=== PATIENT | male | born 1975 | race Caucasian/White ===

== ENCOUNTER 2022-10-07 06:03 | Outpatient (REF) | payer MEDICARE, MEDICAID, SELFPAY | END 2022-10-07 06:04 | disposition home or self-care (01) | LOC: HO.HOSX 06:03 | PROVIDERS: Visit Provider Physician Assistant | DX: Z13.89 Encounter for screening for other disorder (principal) ==

== ENCOUNTER 2022-10-24 06:03 | Outpatient (REF) | payer MEDICARE, MEDICAID, SELFPAY ==
--- NOTE | ~2022-10-24 | XR_ITS ---
EXAMINATION: XR FOOT, RIGHT XR ANKLE, RIGHT CLINICAL INFORMATION: Displaced fracture right 5th metatarsal bone. COMPARISON: None available. TECHNIQUE: 3 views of the right foot and 3 views of the right ankle. FINDINGS: RIGHT FOOT: No fracture or dislocation. Degenerative changes of the talonavicular joint and talar osteophyte or beak. Degenerative changes at the posterior talar calcaneal joint. Calcaneal spurs. RIGHT ANKLE: No acute fracture or dislocation. Evidence of old trauma to the inferior medial and lateral malleoli. Severe arthritis at the tibiotalar joint. The ankle mortise appears unstable with slight tilt of the dome of the talus. Diffuse soft tissue swelling about the ankle and probable joint effusion. XR/XR ankle RT min 3V IMPRESSION: Right Foot: Degenerative changes of the hindfoot. Right Ankle: Probable old trauma to the inferior medial and lateral malleoli. Severe arthritis at the ankle joint and unstable ankle mortise with tilted dome of the talus. Diffuse soft tissue swelling and joint effusion.
--- NOTE | ~2022-10-24 | XR_ITS ---
EXAMINATION: XR FOOT, RIGHT XR ANKLE, RIGHT CLINICAL INFORMATION: Displaced fracture right 5th metatarsal bone. COMPARISON: None available. TECHNIQUE: 3 views of the right foot and 3 views of the right ankle. FINDINGS: RIGHT FOOT: No fracture or dislocation. Degenerative changes of the talonavicular joint and talar osteophyte or beak. Degenerative changes at the posterior talar calcaneal joint. Calcaneal spurs. RIGHT ANKLE: No acute fracture or dislocation. Evidence of old trauma to the inferior medial and lateral malleoli. Severe arthritis at the tibiotalar joint. The ankle mortise appears unstable with slight tilt of the dome of the talus. Diffuse soft tissue swelling about the ankle and probable joint effusion. XR/XR foot RT min 3V IMPRESSION: Right Foot: Degenerative changes of the hindfoot. Right Ankle: Probable old trauma to the inferior medial and lateral malleoli. Severe arthritis at the ankle joint and unstable ankle mortise with tilted dome of the talus. Diffuse soft tissue swelling and joint effusion.
== END 2022-10-24 06:04 | disposition home or self-care (01) ==
LOC: HO.HOSX 06:03
PROVIDERS: Visit Provider Physician Assistant
DX: S92.351A Displaced fracture of fifth metatarsal bone, right foot, initial encounter for closed fracture (principal); M19.071 Primary osteoarthritis, right ankle and foot
CPT/HCPCS: 73610; 73630; 99202

== ENCOUNTER 2022-11-01 09:56 | Outpatient (REF) | payer MEDICARE, MEDICAID, SELFPAY ==
[2022-11-01 10:59] LABS: Hematocrit 41.4 % (42.0-52.0); Hemoglobin 13.9 g/dl (14.0-18.0); Mean Corpuscular HGB Conc 33.6 g/dl (31.0-36.0); Mean Corpuscular Hemoglobin 27.9 pg (27.0-33.0); Mean Corpuscular Volume 83.1 fL (80.0-98.0); Mean Platelet Volume 10.2 fL (9.4-12.4); Platelet Count 197 X10*3/uL (160-400); Red Blood Count 4.98 X10*6/uL (4.60-5.80); Red Cell Distribution Width 12.7 % (11.0-16.0); White Blood Count 4.6 X10*3/uL (4.8-10.8)
[2022-11-01 11:17] LABS: Alanine Aminotransferase 33 U/L (0-40); Alkaline Phosphatase 91 U/L (39-117); Anion Gap 10 (12-20); Aspartate Amino Transferase 26 U/L (5-37); Bilirubin Total 0.5 mg/dL (0.0-1.0); Blood Urea Nitrogen 12 mg/dL (9-16); Calcium 8.8 mg/dL (8.4-10.2); Carbon Dioxide 27 mmol/L (22-29); Chloride 107 mmol/L (96-108); Cholesterol 162 mg/dL; Estimated Glomerular Filt Rate > 60; Glucose Fasting 114 mg/dL (60-99); HDL Cholesterol 43 mg/dL; LDL Cholesterol Calculated 100 mg/dl; Potassium 4.8 mmol/L (3.3-5.1); Sodium 139 mmol/L (135-145); Total Protein 6.5 g/dL (6.5-8.0); Triglycerides 97 mg/dL
[2022-11-01 11:35] LABS: TSH reflex Free T4 1.67 uIU/mL (0.32-4.0); Vitamin D 25-OH Total 15.1 ng/mL (>30)
== END 2022-11-01 09:57 | disposition home or self-care (01) ==
LOC: HO.10HDL 09:56
PROVIDERS: Visit Provider Nurse Practitioner Family
DX: Z00.00 Encounter for general adult medical examination without abnormal findings (principal); E55.9 Vitamin D deficiency, unspecified
CPT/HCPCS: 36415; 80053; 80061; 82306; 84443; 85027

== ENCOUNTER 2023-02-03 09:55 | Outpatient (REF) | payer MEDICARE, MEDICAID, SELFPAY ==
[2023-02-03 12:02] LABS: Vitamin D 25-OH Total 28.8 ng/mL (>30)
== END 2023-02-03 09:56 | disposition home or self-care (01) ==
LOC: HO.10HDL 09:55
PROVIDERS: Visit Provider Nurse Practitioner Family
DX: E55.9 Vitamin D deficiency, unspecified (principal)
CPT/HCPCS: 36415; 82306

== ENCOUNTER 2023-02-03 16:05 | Outpatient (AMB) | payer MEDICARE, MEDICAID, SELFPAY ==
[2023-02-03 16:17] VITALS: BP 122/78; PULSE 84; TEMP 37.1; O2SAT 97; BMI 39.9
--- NOTE | 2023-02-03 16:17 | MHC.PC.OV ---
Vital Signs 02/03/23 16:17 Height 5 ft 11 in Weight 286 lb BMI 39.9 BP 122/78 Blood Pressure Location Lt brachial Position Sitting Pulse 84 Pulse Source Pulse Oximeter Temp 98.8 F Temp Source Oral Pulse Oximetry (%) 97 Oxygen Delivery Method Room Air Oxygen Flow Rate 98.8 Intake Visit Reasons: f/u left hip surgery, right ankle pain Intake Note: Patient is here for follow up on left hip surgery. Patient is complaining of right ankle pain. Patient is also complaining of anxiety. Allergies No Known Allergies Allergy (Unverified 02/03/23 16:45) Medication List - Last Reconciled 02/03/23 by Jere Moser CNP cholecalciferol (vitamin D3) 1,250 mcg PO QWEEK 8 weeks fluoxetine 20 mg PO DAILY 90 days gabapentin 800 mg PO TID 30 days hydroxyzine HCl 50 mg PO QID PRN 30 days lisinopril 2.5 mg PO DAILY omeprazole 20 mg PO DAILY 30 days Tobacco use date assessed: 02/03/23 Dental Screening Dental Screen Date: 02/03/23 Did you have a dental visit in the last 12 months?: No Did you have a dental problem in the last 6 months where you did not have access to dental care?: No Was dental information given to patient?: No HPI HPI Comments History of Present Illness Details 47-year-old male presents for left hip surgery follow-up He notes he had total hip replace surgery at [facility] on 11/07/2022. He reports significant improvement and progressively improving. He reports continued pain to his right ankle. He symptoms have been ongoing for the past 2 years He was seen by [facility] Ortho on 10/24/2022, x-ray of right foot and ankle reveals severe OA, was referred to foot and ankle specialist He notes that the financial assistance specialist advised to allow his left hip to properly heal before possible fusion of the left ankle. He states he is getting fitted for an AFO ankle brace next week. He notes that icing and otc muscle rub provides significant relief. He reports anxiety and notes Fluoxetine and hydroxyzine provides improvement. He notes he only takes the the Hydroxyzine on and off. He requests a referral to a therapist. [facility] Surgical History (Updated 10/24/22 @ 13:34 by MEHRAN Bryant) History of back surgery History of right hip replacement Social History Housing: Apartment Patient Tobacco Use Status: Never used Tobacco e-Cigarette/Vaping Use: Former Use service: No Current occupational status: unemployed Cognitive needs: No Hearing needs: No Vision needs: No Questionnaire PHQ-9 Over the last 2 weeks, how often have you been bothered by any of the following problems? 1. Little interest or pleasure in doing things: nearly every day 2. Feeling down, depressed, or hopeless: several days 3. Trouble falling or staying asleep, or sleeping too much: more than half the days 4. Feeling tired or having little energy: nearly every day 5. Poor appetite or overeating: nearly every day 6. Feeling bad about yourself - or that you are a failure or have let yourself or your family down: nearly every day 7. Trouble concentrating on things, such as reading the newspaper or watching television: nearly every day 8. Moving or speaking so slowly that other people could have noticed. Or the opposite - being so fidgety or restless that you have been moving around a lot more than usual: nearly every day 9. Thoughts that you would be better off or of hurting yourself in some way: not at all Total score: 21 Depression Screening Interpretation: Positive Depression Screening Follow-up: Existing condition, In treatment and Community Mental Health Worker F/U Source: Developed by Drs. Jony Perez, Jone Montiel and colleagues, with an educational chloe from [employer]. Thrive Questionnaire Date Thrive assessed: 09/06/22 ASTER-7 AMB Questionnaire ASTER-7 Date ASTER - 7 assessed: 09/06/22 Feeling nervous, anxious, or on edge: 3 = Nearly every day Not being able to stop or control worryin = Nearly every day Worrying too much about different things: 3 = Nearly every day Trouble relaxin = Nearly every day Being so restless that it is hard to sit still: 3 = Nearly every day Becoming easily annoyed or irritable: 3 = Nearly every day Feeling afraid as if something awful might happen: 0 = Not at all Total ASTER-7 score (0-4 normal; 5-9 mild; 10-14 moderate; 15-21 severe): 18 Source: Developed by Uyen La James, Jone Uribe and colleagues, with an educational chloe from [employer]. Review of Systems Const Details: Const Denies chills, Denies fatigue, Denies fever(s), Denies headache(s) and Denies weakness ENT Denies dizziness and Denies headache(s) Card Denies chest pain, Denies lightheadedness, Denies dyspnea and Denies other (Palpitations) Resp Denies cough, Denies dyspnea, Denies wheezing and Denies other ( shortness of breath) GI Denies abdominal pain, Denies melena, Denies hematochezia, Denies change in bowel habits, Denies dyspepsia and Denies nausea Denies hematuria and Denies dysuria Musc Reports R ankle pain, Denies abnormal gait, Denies numbness and Denies tingling Skin/Breast Denies rash, Denies unusual bruising and Denies wounds Neuro Denies abnormal gait, Denies dizziness, Denies headache(s), Denies memory loss, Denies numbness, Denies Sensory deficit (Neuro), Denies tingling and Denies weakness Psych Reports anxiety and Denies depression Endo Denies fatigue Aller/Immun Denies wheezing Physical exam (Primary Care) Vital Signs: Last Vital Signs Temp 98.8 F 02/03/23 16:17 Pulse 84 02/03/23 16:17 BP 122/78 02/03/23 16:17 Pulse Ox 97 02/03/23 16:17 Oxygen Delivery Method Room Air 02/03/23 16:17 Oxygen Flow Rate 98.8 02/03/23 16:17 BMI result Body Mass Index 39.9 Tobacco/Smoking Status: Tobacco use Status Tobacco use date assessed 02/03/23 02/03/23 16:33 Patient Tobacco Use Status Never used Tobacco 02/03/23 16:33 e-Cigarette/Vaping Use Former Use 02/03/23 16:33 Depression Screening Interpretation: Positive Depression Screening Follow-up: Existing condition, In treatment and Community Mental Health Worker F/U Thrive Assessment: Date of Thrive Assessment Date Thrive assessed 09/06/22 02/03/23 16:33 Const Other: General: no acute distress and well developed Nutritional Appearance: well nourished Orientation/consciousness: patient oriented x3 HENMT Head: Yes normocephalic and Yes atraumatic Eyes General: appearance normal, both eyes and all related structures Pupils: Equal, round and reactive pupils present EOM: EOMs intact bilaterally Resp Effort & Inspection: normal respiratory effort Auscultation: clear to auscultation bilaterally Cardio Rate: regular rate Rhythm: regular rhythm Heart sounds: S1 normal heart sound present, S2 normal heart sound present, no gallops, no murmurs and no rubs GI Palpation (GI): No Abdominal aortic bruit present, Soft to palpation, nontender, No hepatosplenomegaly present and No Rebound tenderness present Auscultation: normal bowel sounds General: Yes no CVA tenderness Back/Spine/Pelvis Back: no CVA tenderness Cervical Spine: cervical ROM normal and No Cervical spine tenderness Thoracic/Lumbar Spine: thoraco-lumbar ROM normal, No pain with thoraco-lumbar ROM, No thoracic spinal tenderness and No lumbar spinal tenderness Extrem General: Yes normal to inspection, No edema and No calf tenderness Skin General: warm and dry. Normal skin color. Normal skin turgor Lesions: no lesions Rashes: no rashes Trauma: no lacerations or abrasions Wounds: no wounds Nails: normal Neuro General: patient oriented x3, gait normal and no focal neuro deficit Cranial nerves: Yes Equal, round and reactive pupils present Cognition (Neuro): normal cognition Gait exam (Neuro): Normal gait present Sensory Exam: No Sensory deficit (Neuro) Psych Appearance: grossly normal Affect: normal affect Attitude: cooperative Thought process: Normal thought process present Assessment and Plan Assessment & Plan (1) Chronic pain of right ankle: Code(s): M25.571 - Pain in right ankle and joints of right foot; G89.29 - Other chronic pain Plan: He reports continued pain to his right ankle. He symptoms have been ongoing for the past 2 years He was seen by [facility] Ortho on 10/24/2022, x-ray of right foot and ankle reveals severe OA, was referred to foot and ankle specialist He notes that the financial assistance specialist advised to allow his left hip to properly heal before possible fusion of the left ankle. He states he is getting fitted for an AFO ankle brace next week. He notes that icing and otc muscle rub provides significant relief. Continue with current regimen Follow-up with orthopedics or hand/financial assistance specialist as planned Return with new or worsening symptom Verbalized understanding and agreed with treatment plan (2) Chronic left hip pain: Code(s): M25.552 - Pain in left hip; G89.29 - Other chronic pain Plan: He notes that he had total hip replace surgery at [facility] on 11/07/2022. He reports significant improvement and progressively improving. Continue follow-up with surgery as planned Follow-up with new or worsening symptoms Verbalized understanding and agreed with treatment plan. (3) Anxiety: Code(s): F41.9 - Anxiety disorder, unspecified Plan: PHQ-9 and ASTER-7 scores revealed severe depression and anxiety Continue to take fluoxetine and hydroxyzine as prescribed Referred to the community navigator for referral to a therapist Routine exercise encouraged Follow-up with new or worsening symptoms Verbalized understanding and agreed with treatment plan. (4) Depression: Code(s): F32.A - Depression, unspecified Plan: As above Orders: Referrals Nurse Navigator Referral F32.A - Depression, unspecified, F41.9 - Anxiety disorder, unspecified Coding Level of Care Code Est Pt Level 4 (89783) Diagnoses Chronic pain of right ankle M25.571; G89.29 Chronic left hip pain M25.552; G89.29 Anxiety F41.9 Depression F32.A Time Spent (min) 35
== END 2023-02-03 17:09 | disposition home or self-care (01) ==
PROVIDERS: PCP Nurse Practitioner Family; Visit Provider Nurse Practitioner Family
DX: M25.571 Pain in right ankle and joints of right foot (principal); G89.29 Other chronic pain; M25.552 Pain in left hip; F41.9 Anxiety disorder, unspecified; F32.A Depression, unspecified
CPT/HCPCS: 99214

== ENCOUNTER 2023-03-17 10:45 | Outpatient (REF) | payer MEDICARE, MEDICAID, SELFPAY ==
[2023-03-17 15:44] LABS: Glucose Fasting 108 mg/dL (60-99)
== END 2023-03-17 10:46 | disposition home or self-care (01) ==
LOC: HO.10HDL 10:45
PROVIDERS: Visit Provider Nurse Practitioner Family
DX: R73.01 Impaired fasting glucose (principal); E55.9 Vitamin D deficiency, unspecified
CPT/HCPCS: 36415; 82306; 82947

== ENCOUNTER 2023-03-21 13:26 | Outpatient (AMB) | payer MEDICARE, MEDICAID, SELFPAY ==
--- NOTE | 2023-03-21 13:30 | MHC.PC.OV ---
Vital Signs 03/21/23 13:31 Height 5 ft 11 in Weight 288 lb 6 oz BMI 40.2 BP 138/76 Blood Pressure Location Rt brachial Position Sitting Respiration 12 Pulse 95 Pulse Source Pulse Oximeter Temp 98 F Temp Source Temporal Artery Scan Pulse Oximetry (%) 99 Oxygen Delivery Method Room Air Intake Visit Reasons: 1 mos anxiety, depression Intake Note: Patient states he needs a refill on his gabapentin. Patient would also like to know if he is suppose to keep taking Vitamin D3. Patient would like a referral to eye doctor to get vision checked. Pattern Drafter Required: No Accompanied by: Self / Same As Patient Allergies Seasonal Allergies Allergy (Intermediate, Verified 03/21/23 13:59) Itchy Eyes raw apples Allergy (Intermediate, Uncoded 03/21/23 13:59) Itchy throat Medication List - Last Reviewed 03/21/23 by Ryann Tran MA acetaminophen (Tylenol Extra Strength) 1,000 mg PO TID cholecalciferol (vitamin D3) 25 mcg PO DAILY 90 days fluoxetine 20 mg PO DAILY 90 days gabapentin 800 mg PO TID 30 days hydroxyzine HCl 50 mg PO QID PRN 30 days ibuprofen 800 mg PO TID lisinopril 2.5 mg PO DAILY 30 days omeprazole 20 mg PO DAILY 30 days upadacitinib ER (Rinvoq) 15 mg PO DAILY Tobacco use date assessed: 02/03/23 Dental Screening Dental Screen Date: 03/21/23 Did you have a dental visit in the last 12 months?: No Did you have a dental problem in the last 6 months where you did not have access to dental care?: No Was dental information given to patient?: Yes HPI HPI Comments History of Present Illness Details 47-year-old male presents for anxiety and depression follow-up. He is on fluoxetine and hydroxyzine which he notes he has been taking as prescribed. He reports controlled and improved anxiety and depression symptoms. He notes he has not been contacted by behavioral therapy. He reports continued persistent right ankle pain. He is on prescribed Tylenol and Ibuprofen. He is followed by Dr. Vlad Krishnamurthy, orthopedic surgeon. He note he has not been taking Vitamin D3 since prescribed. He requests a referral to Ophthalmology for an eye exam. He denies acute eye symptoms. [facility] Medical History No pertinent past medical history Surgical History History of back surgery History of right hip replacement Family History Other Mental health disorder Substance abuse Social History Housing: Apartment Tobacco use type: Smokeless Tobacco e-Cigarette/Vaping Use: Former Use service: No Current occupational status: unemployed Cognitive needs: No Hearing needs: No Vision needs: Yes Questionnaire PHQ-9 Over the last 2 weeks, how often have you been bothered by any of the following problems? 1. Little interest or pleasure in doing things: more than half the days 2. Feeling down, depressed, or hopeless: more than half the days 3. Trouble falling or staying asleep, or sleeping too much: several days 4. Feeling tired or having little energy: more than half the days 5. Poor appetite or overeating: nearly every day 6. Feeling bad about yourself - or that you are a failure or have let yourself or your family down: more than half the days 7. Trouble concentrating on things, such as reading the newspaper or watching television: nearly every day 8. Moving or speaking so slowly that other people could have noticed. Or the opposite - being so fidgety or restless that you have been moving around a lot more than usual: nearly every day 9. Thoughts that you would be better off or of hurting yourself in some way: not at all Total score: 18 Depression Screening Interpretation: Positive Depression Screening Follow-up: Existing condition and In treatment Source: Developed by Drs. Jony Perez, Uyen Ramirez, Jone Uribe and colleagues, with an educational chloe from [employer]. Thrive Questionnaire Date Thrive assessed: 09/06/22 ASTER-7 AMB Questionnaire ASTER-7 Date ASTER - 7 assessed: 03/21/23 Feeling nervous, anxious, or on edge: 2 = More than half the days Not being able to stop or control worryin = More than half the days Worrying too much about different things: 2 = More than half the days Trouble relaxin = More than half the days Being so restless that it is hard to sit still: 2 = More than half the days Becoming easily annoyed or irritable: 1 = Several days Feeling afraid as if something awful might happen: 3 = Nearly every day Total ASTER-7 score (0-4 normal; 5-9 mild; 10-14 moderate; 15-21 severe): 14 Source: Developed by Drs. Jony Perez, Uyen Ramirez, Jone Uribe and colleagues, with an educational chloe from [employer]. Review of Systems Const Details: Const Denies chills, Denies fatigue, Denies fever(s), Denies headache(s) and Denies weakness ENT Denies dizziness and Denies headache(s) Card Denies chest pain, Denies lightheadedness, Denies dyspnea and Denies other (Palpitations) Resp Denies cough, Denies dyspnea, Denies wheezing and Denies other ( shortness of breath) GI Denies abdominal pain, Denies melena, Denies hematochezia, Denies change in bowel habits, Denies dyspepsia and Denies nausea Denies hematuria and Denies dysuria Musc Reports as per HPI Skin/Breast Denies rash, Denies unusual bruising and Denies wounds Neuro Denies abnormal gait, Denies dizziness, Denies headache(s), Denies memory loss, Denies numbness, Denies Sensory deficit (Neuro), Denies tingling and Denies weakness Psych Reports anxiety, Reports depression, Denies memory loss Endo Denies cold intolerance, Denies fatigue, Denies heat intolerance, Denies polydipsia and Denies polyuria Aller/Immun Denies wheezing Physical exam (Primary Care) Vital Signs: Last Vital Signs Temp 98 F 03/21/23 13:31 Pulse 95 03/21/23 13:31 Resp 12 03/21/23 13:31 BP 138/76 03/21/23 13:31 Pulse Ox 99 03/21/23 13:31 Oxygen Delivery Method Room Air 03/21/23 13:31 BMI result Body Mass Index 40.2 Tobacco/Smoking Status: Tobacco use Status Tobacco use date assessed 02/03/23 03/21/23 13:31 Patient Tobacco Use Status 03/21/23 13:50 Tobacco use type Smokeless Tobacco 03/21/23 13:50 e-Cigarette/Vaping Use Former Use 03/21/23 13:31 PHQ-9: PHQ-9 Score PHQ-9: Total score 18 03/21/23 14:15 Depression Screening Interpretation: Positive Depression Screening Follow-up: Existing condition and In treatment Thrive Assessment: Date of Thrive Assessment Date Thrive assessed 09/06/22 03/21/23 13:31 Const Other: General: no acute distress and well developed Nutritional Appearance: well nourished Orientation/consciousness: patient oriented x3 HENMT Head: Yes normocephalic and Yes atraumatic Eyes General: appearance normal, both eyes and all related structures Pupils: Equal, round and reactive pupils present EOM: EOMs intact bilaterally Resp Effort & Inspection: normal respiratory effort Auscultation: clear to auscultation bilaterally Cardio Rate: regular rate Rhythm: regular rhythm Heart sounds: S1 normal heart sound present, S2 normal heart sound present, no gallops, no murmurs and no rubs GI Palpation (GI): No Abdominal aortic bruit present, Soft to palpation, nontender, No hepatosplenomegaly present and No Rebound tenderness present Auscultation: normal bowel sounds General: Yes no CVA tenderness Back/Spine/Pelvis Back: no CVA tenderness Cervical Spine: cervical ROM normal and No Cervical spine tenderness Thoracic/Lumbar Spine: thoraco-lumbar ROM normal, No pain with thoraco-lumbar ROM, No thoracic spinal tenderness and No lumbar spinal tenderness Extrem General: Yes normal to inspection, No edema and No calf tenderness Skin General: warm and dry. Normal skin color. Normal skin turgor Lesions: no lesions Rashes: no rashes Trauma: no lacerations or abrasions Wounds: no wounds Nails: normal Neuro General: patient oriented x3, gait normal and no focal neuro deficit Cranial nerves: Yes Equal, round and reactive pupils present Cognition (Neuro): normal cognition Gait exam (Neuro): Normal gait present Sensory Exam: No Sensory deficit (Neuro) Psych Appearance: grossly normal Affect: normal affect Attitude: cooperative Thought process: Normal thought process present Results AMB Hemoglobin A1c AMB Hemoglobin A1c 5.9 % Last Edit by Ryann Tran MA on 03/21/23 16:13 Assessment and Plan Assessment & Plan (1) Anxiety: Code(s): F41.9 - Anxiety disorder, unspecified Plan: PHQ-9 and ASTER-7 scores revealed moderately severe depression and moderate anxiety respectively Fluoxetine and hydroxyzine as prescribed Routine exercise encouraged He met with the community navigator who will try to facilitate connecting him to a therapist Follow-up in 1 month or return sooner with worsening or new symptoms Verbalized understanding and agreed with treatment plan. (2) Depression: Code(s): F32.A - Depression, unspecified Plan: As above (3) Hypertension: Code(s): I10 - Essential (primary) hypertension Plan: Blood pressure is 138/76, within goal of less than 140/90 Lisinopril as prescribed Low-sodium diet encouraged Follow-up in 1 month for complete physical exam Verbalized understanding and agreed with treatment plan. (4) Chronic pain of right ankle: Code(s): M25.571 - Pain in right ankle and joints of right foot; G89.29 - Other chronic pain Plan: He reports continued persistent right ankle pain. He is on prescribed Tylenol and Ibuprofen. He is followed by Dr. Vlad Krishnamurthy, orthopedic surgeon. No edema, erythema, or overt injury or trauma Tylenol, ibuprofen, and gabapentin as prescribed Warm/cold compresses encouraged Follow-up with Orthopedic surgery as planned Return with new or worsening symptoms Verbalized understanding and agreed with treatment plan. (5) Vitamin D deficiency: Code(s): E55.9 - Vitamin D deficiency, unspecified Plan: He note he has not been taking Vitamin D3 since prescribed Recent vitamin-D level is low, 22 Encouraged to start taking vitamin D3 as prescribed Verbalized understanding and agreed with treatment plan. (6) Pre-diabetes: Code(s): R73.03 - Prediabetes Plan: Recent lab results reviewed with the patient. Recent fasting glucose is elevated and has been elevated in past. A1c today is 5.9% Healthy diet and routine exercise encouraged Will continue to monitor Verbalized understanding and agreed with treatment plan. (7) Routine eye exam: Code(s): Z01.00 - Encounter for examination of eyes and vision without abnormal findings Plan: He requests a referral to Ophthalmology for an eye exam. He denies acute eye symptoms. Referred to Ophthalmology Orders: Orders AMB Hemoglobin A1c Today Z13.9 - Encounter for screening, unspecified Referrals Ophthalmology Referral Z01.00 - Encounter for examination of eyes and vision without abnormal findings Medications: Refilled gabapentin 800 mg PO TID 30 days 90 tabs 0RF Coding Level of Care Code Est Pt Level 4 (53429) Diagnoses Anxiety F41.9 Depression F32.A Hypertension I10 Chronic pain of right ankle M25.571; G89.29 Vitamin D deficiency E55.9 Pre-diabetes R73.03 Routine eye exam Z01.00
[2023-03-21 13:31] VITALS: BP 138/76; PULSE 95; RESP 12; TEMP 36.6; O2SAT 99; BMI 40.2
== END 2023-03-21 14:55 | disposition home or self-care (01) ==
PROVIDERS: PCP Nurse Practitioner Family; Visit Provider Nurse Practitioner Family
DX: I10 Essential (primary) hypertension (principal); E55.9 Vitamin D deficiency, unspecified; F41.9 Anxiety disorder, unspecified; R73.03 Prediabetes; F32.A Depression, unspecified; M25.571 Pain in right ankle and joints of right foot; G89.29 Other chronic pain; Z01.00 Encounter for examination of eyes and vision without abnormal findings
CPT/HCPCS: 83036; 99214

== ENCOUNTER 2023-04-21 12:57 | Outpatient (AMB) | payer MEDICARE, MEDICAID, SELFPAY ==
--- NOTE | 2023-04-21 13:06 | MHC.PC.OV ---
Vital Signs 04/21/23 13:15 Height 5 ft 11 in Weight 294 lb 2 oz BMI 41.0 BP 136/84 Blood Pressure Location Rt brachial Position Sitting Respiration 14 Pulse 107 H Pulse Source Pulse Oximeter Temp 98.9 F Temp Source Oral Pulse Oximetry (%) 97 Oxygen Delivery Method Room Air Intake Visit Reasons: Extended exam Intake Note: Patient reports he is here to follow up with his health. Patient reports he needs refills on all of his medications. 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 Accompanied by: Self / Same As Patient Allergies Seasonal Allergies Allergy (Intermediate, Verified 04/21/23 13:41) Itchy Eyes raw apples Allergy (Intermediate, Uncoded 04/21/23 13:41) Itchy throat Medication List - Last Reconciled 04/21/23 by Jere Moser CNP acetaminophen (Tylenol Extra Strength) 1,000 mg PO TID cholecalciferol (vitamin D3) 25 mcg PO DAILY 90 days fluoxetine 20 mg PO DAILY 90 days gabapentin 800 mg PO TID 30 days hydroxyzine HCl 50 mg PO QID PRN 30 days ibuprofen 800 mg PO TID lisinopril 5 mg PO DAILY 30 days omeprazole 20 mg PO DAILY 30 days upadacitinib ER (Rinvoq) 15 mg PO DAILY Tobacco use date assessed: 02/03/23 HPI HPI Comments History of Present Illness Details 47-year-old male presents for a complete physical exam. He has past medical history significant for hypertension, anxiety, depression, vitamin-D deficiency, and osteoarthritis of the right ankle and foot. He admits to taking his medications as prescribed. He is followed by a job service specialist and arthritis specialist. He states his job service specialist prescribed a right ankle brace which has been providing significant pain relief. He is also on Rinvoq which he notes was prescribed by his arthritis specialist. He denies acute symptoms at this time. [facility] Medical History No pertinent past medical history Surgical History History of back surgery History of right hip replacement Family History Other Mental health disorder Substance abuse Social History Housing: Apartment Tobacco use type: Smokeless Tobacco e-Cigarette/Vaping Use: Former Use service: No Current occupational status: unemployed Cognitive needs: No Hearing needs: No Vision needs: Yes Questionnaire Thrive Questionnaire Date Thrive assessed: 09/06/22 ASTER-7 AMB Questionnaire ASTER-7 Date ASTER - 7 assessed: 03/21/23 Source: Developed by Drs. Jony Perez, Uyen Ramirez, Jone Uribe and colleagues, with an educational chloe from [employer]. Review of Systems Const Details: Denies chills, Denies fatigue, Denies fever(s), Denies headache(s) and Denies weakness HEENT Denies change in vision, Denies dizziness, Denies headache(s), Denies hearing loss, Denies nasal congestion, Denies sinus pain, Denies sinus pressure and Denies sore throat Card Denies chest pain, Denies lightheadedness, Denies dyspnea and Denies other (palpitations) Resp Denies cough, Denies dyspnea and Denies wheezing GI Denies abdominal pain, Denies melena, Denies hematochezia, Denies change in bowel habits, Denies dyspepsia and Denies nausea Denies hematuria and Denies dysuria Musc Denies abnormal gait, Denies myalgias, Denies arthralgias, Denies numbness and Denies tingling Skin/Breast Denies rash, Denies unusual bruising and Denies wounds Neuro Denies abnormal gait, Denies dizziness, Denies headache(s), Denies memory loss, Denies numbness, Denies Sensory deficit (Neuro), Denies tingling and Denies weakness Psych Denies anxiety, Denies depression and Denies memory loss Endo Denies cold intolerance, Denies fatigue, Denies heat intolerance, Denies polydipsia and Denies polyuria Dave/Lymph Denies easy bleeding and Denies easy bruising Aller/Immun Denies wheezing Physical exam (Primary Care) Vital Signs: Last Vital Signs Temp 98.9 F 04/21/23 13:15 Pulse 107 H 04/21/23 13:15 Resp 14 04/21/23 13:15 BP 136/84 04/21/23 13:15 Pulse Ox 97 04/21/23 13:15 Oxygen Delivery Method Room Air 04/21/23 13:15 BMI result Body Mass Index 41.0 Tobacco/Smoking Status: Tobacco use Status Tobacco use date assessed 02/03/23 04/21/23 13:08 Tobacco use type Smokeless Tobacco 04/21/23 13:08 e-Cigarette/Vaping Use Former Use 04/21/23 13:08 Thrive Assessment: Date of Thrive Assessment Date Thrive assessed 09/06/22 04/21/23 13:08 Const Other: General: no acute distress, well developed, alert and awake Nutritional Appearance: well nourished Orientation/consciousness: patient oriented x3 HENMT Head: Yes normocephalic and Yes atraumatic Ears: hearing grossly normal bilaterally and TM's normal bilaterally General nose exam: Normal external nose present and Normal nares present Mouth: Normal oral and palatal mucosa present and moist mucous membranes Teeth and gingiva: dentition normal Throat: Yes oropharynx normal Eyes Pupils: Equal, round and reactive pupils present and Pupil accommodation reflex normal EOM: EOMs intact bilaterally Neck Neck: Yes normal visual inspection, Yes no lymphadenopathy and Yes trachea midline Thyroid: Thyroid normal Carotids: no bruits Lymphatic: no lymphadenopathy noted Chest Chest palpation & inspection: normal inspection of the chest Resp Effort & Inspection: normal respiratory effort Auscultation: clear to auscultation bilaterally Cardio Rate: regular rate Rhythm: regular rhythm Heart sounds: S1 normal heart sound present, S2 normal heart sound present, no gallops, no murmurs and no rubs Bruits: no abdominal aortic bruits and no carotid bruits GI Palpation (GI): No Abdominal aortic bruit present, Soft to palpation, nontender, No hepatosplenomegaly present and No Rebound tenderness present Auscultation: normal bowel sounds General: Yes no CVA tenderness Back/Spine/Pelvis Back: no CVA tenderness Cervical Spine: cervical ROM normal and No Cervical spine tenderness Thoracic/Lumbar Spine: thoraco-lumbar ROM normal, No pain with thoraco-lumbar ROM, No thoracic spinal tenderness and No lumbar spinal tenderness Skin General: warm and dry. Normal skin color. Normal skin turgor Lesions: no lesions Rashes: no rashes Trauma: no lacerations or abrasions Wounds: no wounds Nails: normal Neuro General: patient oriented x3, gait normal and CN's II-XI intact bilaterally Cranial nerves: Yes Equal, round and reactive pupils present Cognition (Neuro): normal cognition Gait exam (Neuro): Normal gait present Motor exam (neuro): 5/5 motor strength present throughout Sensory Exam: No Sensory deficit (Neuro) Deep tendon reflexes (DTR's): Right patellar reflex intensity grade: 2+ and Left patellar reflex intensity grade: 2+ Extrem General: Yes normal to inspection, No edema and No calf tenderness Psych Appearance: grossly normal Affect: normal affect Attitude: cooperative Thought process: Normal thought process present Assessment and Plan Assessment & Plan (1) Normal physical examination, routine: Code(s): Z00.00 - Encounter for general adult medical examination without abnormal findings Plan: No significant physical restrictions or limitations noted Advised continue with current arthritis treatment plan and to follow-up with foot and orthopedic specialists I spoke with the community navigator wound for November that [facility] has made several attempts to contact the patient but failed. A new referral has been placed to a different behavioral therapist. The community navigator will inform the patient above the new referral Advised to take fluoxetine and hydroxyzine as prescribed and to follow-up in 2 months or return sooner with worsening or new symptoms Verbalized understanding and agreed with the treatment plan. (2) Hypertension: Code(s): I10 - Essential (primary) hypertension Plan: Blood pressure is 136/84, above goal of less than 140/90 His blood pressure has been close to 140 on multiple occasions Will increase lisinopril to 5 mg daily. Take as prescribed Low-sodium diet encouraged Follow up in 2 months or return sooner with symptoms or concerns Verbalized understanding and agreed with treatment plan Medications: New lisinopril 5 mg PO DAILY 30 days 30 tabs 3RF Discontinued lisinopril Discontinued Reason: Doctor's Order 2.5 mg PO DAILY 30 days 30 tabs 3RF Coding Level of Care Code Est Pt Prev Care 40-64y(23168) Diagnoses Normal physical examination, routine Z00.00 Hypertension I10
[2023-04-21 13:15] VITALS: BP 136/84; PULSE 107; RESP 14; TEMP 37.2; O2SAT 97; BMI 41.0
== END 2023-04-21 13:40 | disposition home or self-care (01) ==
PROVIDERS: PCP Nurse Practitioner Family; Visit Provider Nurse Practitioner Family
DX: Z00.00 Encounter for general adult medical examination without abnormal findings (principal); I10 Essential (primary) hypertension
CPT/HCPCS: 99396

== ENCOUNTER 2023-06-23 13:11 | Outpatient (AMB) | payer OTHER, MEDICAID, SELFPAY ==
[2023-06-23 13:13] VITALS: BP 138/76; PULSE 89; RESP 13; TEMP 36.5; O2SAT 99; BMI 41.8
--- NOTE | 2023-06-23 13:13 | A.OFFPC_ITS ---
Vital Signs 06/23/23 13:13 06/23/23 13:55 Height 5 ft 11 in Weight 300 lb BMI 41.8 BP 138/76 110/86 Blood Pressure Location Lt brachial Rt brachial Position Sitting Sitting Respiration 13 Pulse 89 Pulse Source Pulse Oximeter Temp 97.7 F Temp Source Temporal Artery Scan Pulse Oximetry (%) 99 Oxygen Delivery Method Room Air Intake Visit Reasons: f/u anxiety, depression, HTN Intake Note: Patient states he had blood work done at [facility]. Patient needs refill on Hyd roxyzine, fluoxetine, and omeprazole. 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 Accompanied by: Self / Same As Patient Allergies Seasonal Allergies Allergy (Intermediate, Verified 06/23/23 13:45) Itchy Eyes raw apples Allergy (Intermediate, Uncoded 06/23/23 13:45) Itchy throat Medication List - Last Reconciled 06/23/23 by eJre Moser CNP acetaminophen (Tylenol Extra Strength) 1,000 mg PO TID cholecalciferol (vitamin D3) 25 mcg PO DAILY 90 days fluoxetine 20 mg PO DAILY 90 days gabapentin 800 mg PO TID 30 days hydroxyzine HCl 50 mg PO QID PRN 30 days ibuprofen 800 mg PO TID lisinopril 5 mg PO DAILY 30 days omeprazole 20 mg PO DAILY 30 days upadacitinib ER (Rinvoq) 15 mg PO DAILY Tobacco use date assessed: 02/03/23 Dental Screening Dental Screen Date: 06/23/23 Did you have a dental visit in the last 12 months?: No Did you have a dental problem in the last 6 months where you did not have access to dental care?: No Was dental information given to patient?: Yes HPI HPI Comments History of Present Illness Details 47-year-old male presents for anxiety, d epression, and hypertension follow-up He admits to taking his medications as prescribed without adverse reactions He reports increased anxiety and depression symptoms. He admits to getting adequate sleeps but finds it difficult to fall asleep He states that he established with [facility] earlier this week and will be doing weekly telemedicine therapy Patient states he had blood work done at [facility]. Patient needs refill on Hydroxyzine, fluoxetine, and omeprazole. [facility], [facility] Medical History No pertinent past medical history Surgical History History of back surgery History of right hip replacement Family History Other Mental health disorder Substance abuse Social History Housing: Apartment Tobacco use type: Smokeless Tobacco e-Cigarette/Vaping Use: Former Use service: No Current occupational status: unemployed Cognitive needs: No Hearing needs: No Vision needs: No Questionnaire PHQ-9 Over the last 2 weeks, how often have you been bothered by any of the following problems? 1. Little interest or pleasure in doing things: nearly every day 2. Feeling down, depressed, or hopeless: more than half the days 3. Trouble falling or staying asleep, or sleeping too much: more than half the days 4. Feeling tired or having little energy: nearly every day 5. Poor appetite or overeating: nearly every day 6. Feeling bad about yourself - or that you are a failure or have let yourself or your family down: nearly every day 7. Trouble concentrating on things, such as reading the newspaper or watching television: nearly every day 8. Moving or speaking so slowly that other people could have noticed. Or the opposite - being so fidgety or restless that you have been moving around a lot more than usual: nearly every day 9. Thoughts that you would be better off or of hurting yourself in some way: not at all Total score: 22 Depression Screening Interpretation: Positive Depression Screening Follow-up: Existing condition and In treatment Depression Screening Done: Yes 70217 - PHQ-9 Billing: Yes Source: Developed by Drs. Jony Perez, Uyen Ramirez, Jone Uribe and colleagues, with an educational chloe from [employer]. Thrive Questionnaire Date Thrive assessed: 09/06/22 ASTER-7 AMB Questionnaire SATER-7 Date ASTER - 7 assessed: 06/23/23 Feeling nervous, anxious, or on edge: 3 = Nearly every day Not being able to stop or control worryin = Nearly every day Worrying too much about different things: 3 = Nearly every day Trouble relaxin = Nearly every day Being so restless that it is hard to sit still: 3 = Nearly every day Becoming easily annoyed or irritable: 2 = More than half the days Feeling afraid as if something awful might happen: 2 = More than half the days Total ASTER-7 score (0-4 normal; 5-9 mild; 10-14 moderate; 15-21 severe): 19 Source: Developed by Drs. Jony Perez, Uyen Ramirez, Jone Uribe and colleagues, with an educational chloe from [employer]. ASTER-7 Assessment Billing ASTER-7 Assessment Tool: ASTER-7 Assessment 04970 Review of Systems Const Details: Const Denies chills, Denies fatigue, Denies fever(s), Denies headache(s) and Denies weakness ENT Denies dizziness and Denies headache(s) Card Denies chest pain, Denies lightheadedness, Denies dyspnea and Denies other (Palpitations) Resp Denies cough, Denies dyspnea, Denies wheezing and Denies other ( shortness of breath) GI Denies abdominal pain, Denies melena, Denies hematochezia, Denies change in bowel habits, Denies dyspepsia and Denies nausea Denies hematuria and Denies dysuria Musc Denies abnormal gait, Denies myalgias, Denies arthralgias, Denies numbness and Denies tingling Skin/Breast Denies rash, Denies unusual bruising and Denies wounds Neuro Denies abnormal gait, Denies dizziness, Denies headache(s), Denies memory loss, Denies numbness, Denies Sensory deficit (Neuro), Denies tingling and Denies weakness Psych Reports anxiety, Reports depression, Denies memory loss Endo Denies cold intolerance, Denies fatigue, Denies heat intolerance, Denies polydipsia and Denies polyuria Aller/Immun Denies wheezing Physical exam (Primary Care) Vital Signs: Last Vital Signs Temp 97.7 F 06/23/23 13:13 Pulse 89 06/23/23 13:13 Resp 13 06/23/23 13:13 BP 138/76 06/23/23 13:13 Pulse Ox 99 06/23/23 13:13 Oxygen Delivery Method Room Air 06/23/23 13:13 BMI result Body Mass Index 41.8 Tobacco/Smoking Status: Tobacco use Status Tobacco use date assessed 02/03/23 06/23/23 13:29 Tobacco use type Smokeless Tobacco 06/23/23 13:29 e-Cigarette/Vaping Use Former Use 06/23/23 13:29 PHQ-9: PHQ-9 Score PHQ-9: Total score 22 06/23/23 13:29 Depression Screening Interpretation: Positive Depression Screening Follow-up: Existing condition and In treatment Thrive Assessment: Date of Thrive Assessment Date Thrive assessed 09/06/22 06/23/23 13:29 Const Other: General: no acute distress and well developed Nutritional Appearance: well nourished Orientation/consciousness: patient oriented x3 HENMT Head: Yes normocephalic and Yes atraumatic Eyes General: appearance normal, both eyes and all related structures Pupils: Equal, round and reactive pupils present EOM: EOMs intact bilaterally Resp Effort & Inspection: normal respiratory effort Auscultation: clear to auscultation bilaterally Cardio Rate: regular rate Rhythm: regular rhythm Heart sounds: S1 normal heart sound present, S2 normal heart sound present, no gallops, no murmurs and no rubs GI Palpation (GI): No Abdominal aortic bruit present, Soft to palpation, nontender, No hepatosplenomegaly present and No Rebound tenderness present Auscultation: normal bowel sounds General: Yes no CVA tenderness Back/Spine/Pelvis Back: no CVA tenderness Cervical Spine: cervical ROM normal and No Cervical spine tenderness Thoracic/Lumbar Spine: thoraco-lumbar ROM normal, No pain with thoraco-lumbar ROM, No thoracic spinal tenderness and No lumbar spinal tenderness Extrem General: Yes normal to inspection, No edema and No calf tenderness Skin General: warm and dry. Normal skin color. Normal skin turgor Neuro General: patient oriented x3, gait normal and no focal neuro deficit Cranial nerves: Yes Equal, round and reactive pupils present Cognition (Neuro): normal cognition Gait exam (Neuro): Normal gait present Sensory Exam: No Sensory deficit (Neuro) Psych Appearance: grossly normal Affect: normal affect Attitude: cooperative Thought process: Normal thought process present Assessment and Plan Assessment & Plan (1) Anxiety: Code(s): F41.9 - Anxiety disorder, unspecified Plan: PHQ-9 and ASTER-7 scores revealed severe depression and anxiety Reports increased anxiety and depression symptoms and difficulty falling asleep He started psychotherapy earlier this week Fluoxetine increased to 30 mg daily. Take as prescribed Buspirone ordered. Take as prescribed Hydroxyzine discontinued Routine exercise encouraged Continue to follow up with therapist as planned Follow-up in 1 month or return sooner with worsening or new symptoms Verbalized understanding and agreed with treatment plan (2) Depression: Code(s): F32.A - Depression, unspecified Plan: As above (3) Hypertension: Code(s): I10 - Essential (primary) hypertension Plan: Resting blood pressure is 110/86, within goal of less than 140/90 Continue to take lisinopril as prescribed Low-sodium diet encouraged Follow-up in 1 month Verbalized understanding and agreed with treatment plan Medications: New fluoxetine Take with Fluoxetine 20mg to equal 30mg 10 mg PO DAILY 30 days 30 tabs 3RF buspirone 7.5 mg PO BID 30 days 60 tabs 3RF fluoxetine Take with Fluoxetine 20mg to equal 30mg 10 mg PO DAILY 90 days 90 tabs 2RF Changed From omeprazole 20 mg PO DAILY 30 days 30 caps 3RF To omeprazole 20 mg PO DAILY 90 days 90 caps 1RF Refilled fluoxetine 20 mg PO DAILY 90 days 90 caps 2RF Discontinued hydroxyzine HCl Discontinued Reason: Doctor's Order 50 mg PO QID 30 days PRN 120 tabs 3RF anxiety Coding Level of Care Code Est Pt Level 3 (33224) Diagnoses Anxiety F41.9 Depression F32.A Hypertension I10 Additional Codes ASTER-7 Assessment Billing - ASTER-7 Assessment Tool: ASTER-7 Assessment [id number] ([id number])
[2023-06-23 13:55] VITALS: BP 110/86
== END 2023-06-23 14:03 | disposition home or self-care (01) ==
PROVIDERS: PCP Nurse Practitioner Family; Visit Provider Nurse Practitioner Family
DX: F41.9 Anxiety disorder, unspecified (principal); F32.A Depression, unspecified; I10 Essential (primary) hypertension
CPT/HCPCS: 96127; 99213

== ENCOUNTER 2023-07-25 13:05 | Outpatient (AMB) | payer OTHER, MEDICAID, SELFPAY ==
[2023-07-25 13:13] VITALS: BP 144/80; PULSE 98; RESP 13; TEMP 36.5; O2SAT 97; BMI 42.7
--- NOTE | 2023-07-25 13:13 | MHC.PC.OV ---
Vital Signs 07/25/23 13:13 07/25/23 13:49 Height 5 ft 11 in Weight 306 lb 8 oz BMI 42.7 BP 144/80 H 126/80 Blood Pressure Location Rt brachial Rt brachial Position Sitting Sitting Respiration 13 Pulse 98 Pulse Source Pulse Oximeter Temp 97.7 F Temp Source Temporal Artery Scan Pulse Oximetry (%) 97 Oxygen Delivery Method Room Air Intake Visit Reasons: f/u anxiety, depression Intake Note: Patient would like to dicuss a possible hiatal hernia in abdomen if possible. Patient would like gabapentin refilled. Insurance Policy Issue Clerk Required: No Accompanied by: Self / Same As Patient Allergies Seasonal Allergies Allergy (Intermediate, Verified 07/25/23 13:31) Itchy Eyes raw apples Allergy (Intermediate, Uncoded 07/25/23 13:31) Itchy throat Medication List - Last Reconciled 07/25/23 by Jere Moser CNP acetaminophen (Tylenol Extra Strength) 1,000 mg PO TID buspirone 7.5 mg PO BID 30 days cholecalciferol (vitamin D3) 25 mcg PO DAILY 90 days fluoxetine 20 mg PO DAILY 90 days fluoxetine 10 mg PO DAILY 90 days gabapentin 800 mg PO TID 30 days ibuprofen 800 mg PO TID lisinopril 5 mg PO DAILY 30 days omeprazole 20 mg PO DAILY 90 days upadacitinib ER (Rinvoq) 15 mg PO DAILY Tobacco use date assessed: 07/25/23 Dental Screening Dental Screen Date: 07/25/23 Did you have a dental visit in the last 12 months?: No Did you have a dental problem in the last 6 months where you did not have access to dental care?: No Was dental information given to patient?: Patient has dentist HPI HPI Comments History of Present Illness Details 47-year-old male presents for anxiety and depression follow-up He admits to taking his medications as prescribed without adverse reactions. He reports increase anxiety and depression improvement since his fluoxetine was increased and Buspirone added to his treatment regimen He reports hernia to his right upper quadrant. He notes that the hernia has been on and off for the past 2 years. He notes associated moderate discomfort to the mass [facility] Medical History No pertinent past medical history Surgical History History of back surgery History of right hip replacement Family History Other Mental health disorder Substance abuse Social History Housing: Apartment Tobacco use type: Smokeless Tobacco e-Cigarette/Vaping Use: Currently Using service: No Current occupational status: unemployed Cognitive needs: No Hearing needs: No Vision needs: No Questionnaire PHQ-9 Over the last 2 weeks, how often have you been bothered by any of the following problems? 1. Little interest or pleasure in doing things: nearly every day 2. Feeling down, depressed, or hopeless: several days 3. Trouble falling or staying asleep, or sleeping too much: nearly every day 4. Feeling tired or having little energy: nearly every day 5. Poor appetite or overeating: nearly every day 6. Feeling bad about yourself - or that you are a failure or have let yourself or your family down: several days 7. Trouble concentrating on things, such as reading the newspaper or watching television: nearly every day 8. Moving or speaking so slowly that other people could have noticed. Or the opposite - being so fidgety or restless that you have been moving around a lot more than usual: more than half the days 9. Thoughts that you would be better off or of hurting yourself in some way: not at all Total score: 19 Depression Screening Interpretation: Positive Depression Screening Done: Yes 60223 - PHQ-9 Billing: Yes Source: Developed by Drs. Jony Perez, Uyen Ramirez, Jone Uribe and colleagues, with an educational chloe from [employer]. Thrive Questionnaire Date Thrive assessed: 09/06/22 ASTER-7 AMB Questionnaire ASTER-7 Date ASTER - 7 assessed: 07/25/23 Feeling nervous, anxious, or on edge: 2 = More than half the days Not being able to stop or control worryin = More than half the days Worrying too much about different things: 2 = More than half the days Trouble relaxin = More than half the days Being so restless that it is hard to sit still: 2 = More than half the days Becoming easily annoyed or irritable: 1 = Several days Feeling afraid as if something awful might happen: 2 = More than half the days Total ASTER-7 score (0-4 normal; 5-9 mild; 10-14 moderate; 15-21 severe): 13 Source: Developed by Drs. Jony Perez, Uyen Ramirez, Jone Uribe and colleagues, with an educational chloe from [employer]. ASTER-7 Assessment Billing ASTER-7 Assessment Tool: ASTER-7 Assessment 25685 Review of Systems Const Details: Const Denies chills, Denies fatigue, Denies fever(s), Denies headache(s) and Denies weakness ENT Denies dizziness and Denies headache(s) Card Denies chest pain, Denies lightheadedness, Denies dyspnea and Denies other (Palpitations) Resp Denies cough, Denies dyspnea, Denies wheezing and Denies other ( shortness of breath) GI Reports right upper abdominal pain, Denies melena, Denies hematochezia, Denies change in bowel habits, Denies dyspepsia and Denies nausea Denies hematuria and Denies dysuria Musc Denies abnormal gait, Denies myalgias, Denies arthralgias, Denies numbness and Denies tingling Skin/Breast Denies rash, Denies unusual bruising and Denies wounds Neuro Denies abnormal gait, Denies dizziness, Denies headache(s), Denies memory loss, Denies numbness, Denies Sensory deficit (Neuro), Denies tingling and Denies weakness Psych Denies anxiety, Denies depression, Denies memory loss Endo Denies cold intolerance, Denies fatigue, Denies heat intolerance, Denies polydipsia and Denies polyuria Aller/Immun Denies wheezing Physical exam (Primary Care) Vital Signs: Last Vital Signs Temp 97.7 F 07/25/23 13:13 Pulse 98 07/25/23 13:13 Resp 13 07/25/23 13:13 BP 144/80 H 07/25/23 13:13 Pulse Ox 97 07/25/23 13:13 Oxygen Delivery Method Room Air 07/25/23 13:13 BMI result Body Mass Index 42.7 Tobacco/Smoking Status: Tobacco use Status Tobacco use date assessed 07/25/23 07/25/23 13:28 Tobacco use type Smokeless Tobacco 07/25/23 13:28 e-Cigarette/Vaping Use Currently Using 07/25/23 13:28 PHQ-9: PHQ-9 Score PHQ-9: Total score 19 07/25/23 13:28 Depression Screening Interpretation: Positive Thrive Assessment: Date of Thrive Assessment Date Thrive assessed 09/06/22 07/25/23 13:28 Const Other: General: no acute distress and well developed Nutritional Appearance: well nourished Orientation/consciousness: patient oriented x3 HENMT Head: Yes normocephalic and Yes atraumatic Eyes General: appearance normal, both eyes and all related structures Pupils: Equal, round and reactive pupils present EOM: EOMs intact bilaterally Resp Effort & Inspection: normal respiratory effort Auscultation: clear to auscultation bilaterally Cardio Rate: regular rate Rhythm: regular rhythm Heart sounds: S1 normal heart sound present, S2 normal heart sound present, no gallops, no murmurs and no rubs GI Palpation (GI): No Abdominal aortic bruit present, Soft to palpation, tender RUQ, No hepatosplenomegaly present and No Rebound tenderness present Auscultation: normal bowel sounds General: Yes no CVA tenderness Back/Spine/Pelvis Back: no CVA tenderness Cervical Spine: cervical ROM normal and No Cervical spine tenderness Thoracic/Lumbar Spine: thoraco-lumbar ROM normal, No pain with thoraco-lumbar ROM, No thoracic spinal tenderness and No lumbar spinal tenderness Extrem General: Yes normal to inspection, No edema and No calf tenderness Skin General: warm and dry. Normal skin color. Normal skin turgor Neuro General: patient oriented x3, gait normal and no focal neuro deficit Cranial nerves: Yes Equal, round and reactive pupils present Cognition (Neuro): normal cognition Gait exam (Neuro): Normal gait present Sensory Exam: No Sensory deficit (Neuro) Psych Appearance: grossly normal Affect: normal affect Attitude: cooperative Thought process: Normal thought process present Assessment and Plan Assessment & Plan (1) RUQ pain: Code(s): R10.11 - Right upper quadrant pain Plan: Reports intermittent right upper quadrant pain for the past 2 years Right upper quadrant tender to palpation, no bulging or protrusion Ultrasound ordered. He will be contacted to schedule appointment Liver enzymes, CBC, and lipase ordered Will review results and make changes as needed Follow-up in 1 month or return sooner with worsening or new symptoms Verbalized understanding and agreed with treatment plan (2) Anxiety: Code(s): F41.9 - Anxiety disorder, unspecified Plan: He reports improved anxiety and depression symptoms with current treatment regimen PHQ-9 and ASTER-7 scores revealed moderately severe depression and moderate anxiety respectively Will increase fluoxetine to 20 mg twice daily. Take as prescribed Continue to take buspirone as prescribed Follow-up in 1 month or return sooner with worsening or new symptoms Verbalized understanding and agreed with treatment plan (3) Depression: Code(s): F32.A - Depression, unspecified Plan: As above Orders: Orders US abdomen limited Today R10.11 - Right upper quadrant pain Lipase Today R10.11 - Right upper quadrant pain Liver Panel Today R10.11 - Right upper quadrant pain Complete Blood Count Auto Diff Today R10.11 - Right upper quadrant pain Medications: Changed From fluoxetine 20 mg PO DAILY 90 caps 2RF 90 days To fluoxetine 20 mg PO BID 180 caps 2RF 90 days Refilled gabapentin 800 mg PO TID 90 tabs 4RF 30 days Discontinued fluoxetine Take with Fluoxetine 20mg to equal 30mg Discontinued Reason: Doctor's Order 10 mg PO DAILY 90 days 90 tabs 2RF Coding Level of Care Code Est Pt Level 3 (22552) Diagnoses RUQ pain R10.11 Anxiety F41.9 Depression F32.A Additional Codes ASTER-7 Assessment Billing - ASTER-7 Assessment Tool: ASTER-7 Assessment 95660 ([id number])
[2023-07-25 13:49] VITALS: BP 126/80
== END 2023-07-25 13:55 | disposition home or self-care (01) ==
PROVIDERS: PCP Nurse Practitioner Family; Visit Provider Nurse Practitioner Family
DX: R10.11 Right upper quadrant pain (principal); F41.9 Anxiety disorder, unspecified; F32.A Depression, unspecified
CPT/HCPCS: 96127; 99213

== ENCOUNTER 2023-09-08 10:12 | Outpatient (REF) | payer OTHER, MEDICAID, SELFPAY ==
--- NOTE | ~2023-09-08 | US_ITS ---
EXAMINATION: US ABDOMEN LIMITED CLINICAL INFORMATION: Right upper quadrant pain. COMPARISON: None available. TECHNIQUE: Real-time imaging of the right upper quadrant abdominal viscera. FINDINGS: PANCREAS: Normal. LIVER: Normal. The liver is normal in size. The liver contour is normal. Parenchymal echogenicity is increased. No focal hepatic lesion. There is no intrahepatic biliary duct dilatation seen. GALLBLADDER: The gallbladder is contracted with a wall thickness is 0.2 cm. No gross echogenic stones seen. COMMON BILE DUCT: Normal in caliber measuring 0.6 cm in diameter. RIGHT KIDNEY: Normal. No hydronephrosis. No renal calculi or focal parenchymal lesions. The kidney measures 12.3 cm in maximum dimension. FREE FLUID: None. US/US abdomen limited IMPRESSION: 1. Echogenic liver without focal lesion. 2. Contracted gallbladder. 3. Visualized pancreas, CBD and right kidney is unremarkable.
== END 2023-09-08 10:13 | disposition home or self-care (01) ==
LOC: HO.US 10:12
PROVIDERS: PCP Nurse Practitioner Family; Visit Provider Nurse Practitioner Family
DX: R10.11 Right upper quadrant pain (principal)
CPT/HCPCS: 76705

== ENCOUNTER 2023-11-13 12:49 | Outpatient (REF) | payer OTHER, MEDICAID, SELFPAY ==
[2023-11-13 13:05] LABS: MANUAL DIFF FLAG NO
[2023-11-13 13:11] LABS: Basophils Percent Auto 0.5 % (0-2); Eosinophils Absolute Auto 0.1 X10*3/uL (0.0-0.4); Eosinophils Percent Auto 0.9 % (0-4); Hematocrit 42.1 % (42.0-52.0); Hemoglobin 14.1 g/dl (14.0-18.0); Imm Gran Abs Auto 0.02 X10*3/uL (0.00-0.03); Imm Gran Pct Auto 0.3 % (0.0-0.4); Lymphocytes Absolute Auto 1.8 X10*3/uL (1.2-4.9); Lymphocytes Percent Auto 30.8 % (20-40); Mean Corpuscular HGB Conc 33.5 g/dl (31.0-36.0); Mean Corpuscular Hemoglobin 27.6 pg (27.0-33.0); Mean Corpuscular Volume 82.5 fL (80.0-98.0); Mean Platelet Volume 10.3 fL (9.4-12.4); Monocytes Absolute Auto 0.5 X10*3/uL (0.1-1.2); Monocytes Percent Auto 8.2 % (2-11); Neutrophils Absolute Auto 3.5 x10*3/uL (2.0-8.3); Neutrophils Percent Auto 59.3 % (45-73); Platelet Count 217 X10*3/uL (160-400); Red Cell Distribution Width 12.9 % (11.0-16.0); White Blood Count 5.9 X10*3/uL (4.8-10.8)
[2023-11-13 14:12] LABS: Alanine Aminotransferase 29 U/L (0-40); Albumin Level 4.3 g/dL (3.5-5.0); Alkaline Phosphatase 86 U/L (39-117); Aspartate Amino Transferase 26 U/L (5-37); Bilirubin Direct 0.1 mg/dL (0.0-0.5); Bilirubin Total 0.3 mg/dL (0.0-1.0); Lipase 29 U/L (8-78); Total Protein 7.3 g/dL (6.5-8.0)
== END 2023-11-13 12:50 | disposition home or self-care (01) ==
LOC: HO.10HDL 12:49
PROVIDERS: Visit Provider Nurse Practitioner Family
DX: R10.11 Right upper quadrant pain (principal)
CPT/HCPCS: 36415; 80076; 83690; 85025

== ENCOUNTER 2023-11-28 16:04 | Outpatient (AMB) | payer OTHER, MEDICAID, SELFPAY ==
--- NOTE | 2023-11-28 14:50 | MHC.PC.OV ---
Vital Signs 11/28/23 16:09 11/28/23 16:33 Height 5 ft 11 in Weight 287 lb 2 oz BMI 40.0 BP 135/93 H 120/84 Blood Pressure Location Rt brachial Rt brachial Position Sitting Sitting Respiration 14 Pulse 108 H Pulse Source Pulse Oximeter Temp 97 F Temp Source Temporal Artery Scan Pulse Oximetry (%) 99 Oxygen Delivery Method Room Air Intake Visit Reasons: Right Upper quadrant abdominal pain Allergies Seasonal Allergies Allergy (Intermediate, Verified 11/28/23 16:19) Itchy Eyes raw apples Allergy (Intermediate, Uncoded 07/25/23 13:31) Itchy throat Tobacco use date assessed: 11/28/23 Dental Screening Dental Screen Date: 11/28/23 Did you have a dental visit in the last 12 months?: No Did you have a dental problem in the last 6 months where you did not have access to dental care?: No Was dental information given to patient?: Yes HPI HPI Comments History of Present Illness Details 47-year-old male presents for chronic intermittent right upper quadrant pain, anxiety, and depression follow-up He admits to taking his medications as prescribed without adverse reactions. He stopped taking buspirone and fluoxetine about 3 months ago Recent CBC, liver panel, and lipase levels and abdominal ultrasound are unrevealing He lost about 18 pounds since his last visit. He stopped eating at night and has been walking more He notes that his anxiety and depression has significantly improved since he started lifestyle changes. He also has not experienced right upper quadrant pain for the past 2 months He is excited that it has been 20 months since he stopped drinking alcohol and this is the longest period. No recreational drug use [facility] Medical History No pertinent past medical history Surgical History History of back surgery History of right hip replacement Family History Other Mental health disorder Substance abuse Social History Household Members: None Both parents involved: No Caregiver staying overnight: No Housing: Apartment Are you a primary child day care teacher to a significant other at home: No Do you presently have visiting nurse or other home services: No 75 years or older and lives alone: No Tobacco use type: Smokeless Tobacco e-Cigarette/Vaping Use: Currently Using service: No Current occupational status: unemployed Cognitive needs: No Hearing needs: No Vision needs: No Questionnaire PHQ-9 Over the last 2 weeks, how often have you been bothered by any of the following problems? 1. Little interest or pleasure in doing things: several days 2. Feeling down, depressed, or hopeless: several days 3. Trouble falling or staying asleep, or sleeping too much: not at all 4. Feeling tired or having little energy: not at all 5. Poor appetite or overeating: several days 6. Feeling bad about yourself - or that you are a failure or have let yourself or your family down: more than half the days 7. Trouble concentrating on things, such as reading the newspaper or watching television: several days 8. Moving or speaking so slowly that other people could have noticed. Or the opposite - being so fidgety or restless that you have been moving around a lot more than usual: not at all 9. Thoughts that you would be better off or of hurting yourself in some way: not at all Total score: 6 Depression Screening Interpretation: Positive Depression Screening Done: Yes 73177 - PHQ-9 Billing: Yes Source: Developed by Drs. Jony Perez, Uyen Ramirez, Jone Uribe and colleagues, with an educational chloe from [employer]. Thrive Questionnaire Date Thrive assessed: 09/06/22 ASTER-7 AMB Questionnaire ASTER-7 Date ASTER - 7 assessed: 11/28/23 Feeling nervous, anxious, or on edge: 2 = More than half the days Not being able to stop or control worryin = Several days Worrying too much about different things: 1 = Several days Trouble relaxin = More than half the days Being so restless that it is hard to sit still: 2 = More than half the days Becoming easily annoyed or irritable: 2 = More than half the days Feeling afraid as if something awful might happen: 1 = Several days Total ASTER-7 score (0-4 normal; 5-9 mild; 10-14 moderate; 15-21 severe): 11 Source: Developed by Drs. Jony Perez, Uyen Ramirez, Jone Uribe and colleagues, with an educational chloe from [employer]. ASTER-7 Assessment Billing ASTER-7 Assessment Tool: ASTER-7 Assessment 61454 Review of Systems Const Details: Const Denies chills, Denies fatigue, Denies fever(s), Denies headache(s) and Denies weakness ENT Denies dizziness and Denies headache(s) Card Denies chest pain, Denies lightheadedness, Denies dyspnea and Denies other (Palpitations) Resp Denies cough, Denies dyspnea, Denies wheezing and Denies other ( shortness of breath) GI Denies abdominal pain, Denies melena, Denies hematochezia, Denies change in bowel habits, Denies dyspepsia and Denies nausea Denies hematuria and Denies dysuria Musc Denies abnormal gait, Denies myalgias, Denies arthralgias, Denies numbness and Denies tingling Skin/Breast Denies rash, Denies unusual bruising and Denies wounds Neuro Denies abnormal gait, Denies dizziness, Denies headache(s), Denies memory loss, Denies numbness, Denies Sensory deficit (Neuro), Denies tingling and Denies weakness Psych Denies anxiety, Denies depression, Denies memory loss Endo Denies cold intolerance, Denies fatigue, Denies heat intolerance, Denies polydipsia and Denies polyuria Aller/Immun Denies wheezing Physical exam (Primary Care) Vital Signs: Last Vital Signs Temp 97 F 11/28/23 16:09 Pulse 108 H 11/28/23 16:09 Resp 14 11/28/23 16:09 BP 135/93 H 11/28/23 16:09 Pulse Ox 99 11/28/23 16:09 Oxygen Delivery Method Room Air 11/28/23 16:09 BMI result Body Mass Index 40.0 Tobacco/Smoking Status: Tobacco use Status Tobacco use date assessed 11/28/23 11/28/23 16:25 Tobacco use type Smokeless Tobacco 11/28/23 16:21 e-Cigarette/Vaping Use Currently Using 11/28/23 16:21 PHQ-9: PHQ-9 Score PHQ-9: Total score 6 11/28/23 16:25 Depression Screening Interpretation: Positive Thrive Assessment: Date of Thrive Assessment Date Thrive assessed 09/06/22 11/28/23 14:51 Const Other: General: no acute distress and well developed Nutritional Appearance: well nourished Orientation/consciousness: patient oriented x3 HENNC Head: Yes normocephalic and Yes atraumatic Eyes General: appearance normal, both eyes and all related structures Pupils: Equal, round and reactive pupils present EOM: EOMs intact bilaterally Resp Effort & Inspection: normal respiratory effort Auscultation: clear to auscultation bilaterally Cardio Rate: regular rate Rhythm: regular rhythm Heart sounds: S1 normal heart sound present, S2 normal heart sound present, no gallops, no murmurs and no rubs GI Palpation (GI): No Abdominal aortic bruit present, Soft to palpation, nontender, No hepatosplenomegaly present and No Rebound tenderness present Auscultation: normal bowel sounds General: Yes no CVA tenderness Back/Spine/Pelvis Back: no CVA tenderness Cervical Spine: cervical ROM normal and No Cervical spine tenderness Thoracic/Lumbar Spine: thoraco-lumbar ROM normal, No pain with thoraco-lumbar ROM, No thoracic spinal tenderness and No lumbar spinal tenderness Extrem General: Yes normal to inspection, No edema and No calf tenderness Skin General: warm and dry. Normal skin color. Normal skin turgor Neuro General: patient oriented x3, gait normal and no focal neuro deficit Cranial nerves: Yes Equal, round and reactive pupils present Cognition (Neuro): normal cognition Gait exam (Neuro): Normal gait present Sensory Exam: No Sensory deficit (Neuro) Psych Appearance: grossly normal Affect: normal affect Attitude: cooperative Thought process: Normal thought process present Assessment and Plan Assessment & Plan (1) RUQ pain: Code(s): R10.11 - Right upper quadrant pain Plan: No pain for the past 2 months Recent CBC, liver panel, and lipase levels, and abdominal ultrasound are unrevealing Continue with lifestyle changes Follow-up with symptoms or concerns Verbalized understanding and agreed with treatment plan (2) Anxiety: Code(s): F41.9 - Anxiety disorder, unspecified Plan: Improved anxiety and depression since he started lifestyle changes He stopped taking buspirone and fluoxetine 3 months ago PHQ-9 and ASTER-7 scores revealed mild depression and moderate anxiety respectively Advised to continue to make healthy dietary choices and exercise routinely Return with symptoms or concerns Verbalized understanding and agreed with treatment plan (3) Depression: Code(s): F32.A - Depression, unspecified Plan: As above (4) Hypertension: Code(s): I10 - Essential (primary) hypertension Plan: Resting blood pressure is 120/84, within goal of less than 140/90 Continue to take lisinopril 5 mg daily Low-sodium diet encouraged Follow-up in 3 months Verbalized understanding and agreed with treatment plan Coding Level of Care Code Est Pt Level 4 (86324) Complex EM visit Add On G2211 Diagnoses RUQ pain R10.11 Anxiety F41.9 Depression F32.A Hypertension I10 Additional Codes ASTER-7 Assessment Billing - ASTER-7 Assessment Tool: ASTER-7 Assessment 59513 ([id number])
[2023-11-28 16:09] VITALS: BP 135/93; PULSE 108; RESP 14; TEMP 36.1; O2SAT 99; BMI 40.0
[2023-11-28 16:33] VITALS: BP 120/84
== END 2023-11-28 16:39 | disposition home or self-care (01) ==
PROVIDERS: PCP Nurse Practitioner Family; Visit Provider Nurse Practitioner Family
DX: R10.11 Right upper quadrant pain (principal); F41.9 Anxiety disorder, unspecified; F32.A Depression, unspecified; I10 Essential (primary) hypertension
CPT/HCPCS: 99214; G2211

== ENCOUNTER 2024-04-10 11:23 | Outpatient (AMB) | payer OTHER, MEDICAID, SELFPAY ==
--- NOTE | 2024-04-10 11:49 | MHC.PC.OV ---
Vital Signs 04/10/24 11:56 Height 5 ft 11 in Weight 290 lb 4 oz BMI 40.5 BP 110/80 Blood Pressure Location Rt brachial Position Sitting Respiration 16 Pulse 92 Pulse Source Pulse Oximeter Temp 98.6 F Temp Source Oral Pulse Oximetry (%) 97 Oxygen Delivery Method Room Air Intake Visit Reasons: Hypertension Follow Up Intake Note: patient here to follow up on HTN. Clinical Laboratory Aides Teacher Required: No Allergies Seasonal Allergies Allergy (Intermediate, Verified 04/10/24 12:27) Itchy Eyes raw apples Allergy (Intermediate, Uncoded 04/10/24 12:27) Itchy throat Medication List - Last Reconciled 04/10/24 by Jere Moser CNP acetaminophen ER (Tylenol Arthritis Pain) 1,300 mg PO Q8H cholecalciferol (vitamin D3) 25 mcg PO DAILY 90 days clobetasol 0.05% topical BID PRN gabapentin 800 mg PO TID 90 days ibuprofen 800 mg PO TID lisinopril 5 mg PO DAILY 30 days omeprazole 20 mg PO DAILY PRN Tobacco use date assessed: 04/10/24 Dental Screening Dental Screen Date: 04/10/24 Did you have a dental visit in the last 12 months?: No Did you have a dental problem in the last 6 months where you did not have access to dental care?: No Was dental information given to patient?: Patient declined HPI HPI Comments History of Present Illness Details 48 y/o male presents for HTN follow up He admits to taking his medications as prescribed without adverse reactions He notes that his weight has been fluctuating; he started eating at night again He has chronic joints pain for which he takes gabapentin, ibuprofen, and tylenol He reports controlled anxiety and depressive symptoms No acute symptoms at this time [facility] Medical History No pertinent past medical history Surgical History History of back surgery History of right hip replacement Family History Other Mental health disorder Substance abuse Social History Household Members: None Both parents involved: No Caregiver staying overnight: No Housing: Apartment Are you a primary career technical counselor to a significant other at home: No Do you presently have visiting nurse or other home services: No 75 years or older and lives alone: No Patient Tobacco Use Status: Never used Tobacco Tobacco use type: Smokeless Tobacco e-Cigarette/Vaping Use: Currently Using service: No Current occupational status: unemployed Cognitive needs: No Hearing needs: No Vision needs: No Questionnaire Thrive Questionnaire Date Thrive assessed: 09/06/22 AUDIT C Alcohol Use Questionnaire (AUDIT-C) 1. How often do you have a drink containing alcohol?: Never Total Score: 0 Score Reviewed/Action Taken: Yes ASTER-7 AMB Questionnaire ASTER-7 Date ASTER - 7 assessed: 11/28/23 Source: Developed by Drs. Jony Perez, Uyen Ramirez, Jone Uribe and colleagues, with an educational chloe from [employer]. Review of Systems Const Details: Const Denies chills, Denies fatigue, Denies fever(s), Denies headache(s) and Denies weakness ENT Denies dizziness and Denies headache(s) Card Denies chest pain, Denies lightheadedness, Denies dyspnea and Denies other (Palpitations) Resp Denies cough, Denies dyspnea, Denies wheezing and Denies other ( shortness of breath) GI Denies abdominal pain, Denies melena, Denies hematochezia, Denies change in bowel habits, Denies dyspepsia and Denies nausea Denies hematuria and Denies dysuria Musc Denies abnormal, Denies numbness and Denies tingling Skin/Breast Denies rash, Denies unusual bruising and Denies wounds Neuro Denies abnormal gait, Denies dizziness, Denies headache(s), Denies memory loss, Denies numbness, Denies Sensory deficit (Neuro), Denies tingling and Denies weakness Psych Denies anxiety, Denies depression, Denies memory loss Endo Denies cold intolerance, Denies fatigue, Denies heat intolerance, Denies polydipsia and Denies polyuria Aller/Immun Denies wheezing Physical exam (Primary Care) Vital Signs: Last Vital Signs Temp 98.6 F 04/10/24 11:56 Pulse 92 04/10/24 11:56 Resp 16 04/10/24 11:56 BP 110/80 04/10/24 11:56 Pulse Ox 97 04/10/24 11:56 Oxygen Delivery Method Room Air 04/10/24 11:56 BMI result Body Mass Index 40.5 Tobacco/Smoking Status: Tobacco use Status Tobacco use date assessed 04/10/24 04/10/24 11:58 Patient Tobacco Use Status Never used Tobacco 04/10/24 11:58 Tobacco use type Smokeless Tobacco 04/10/24 11:51 e-Cigarette/Vaping Use Currently Using 04/10/24 11:51 Thrive Assessment: Date of Thrive Assessment Date Thrive assessed 09/06/22 04/10/24 11:51 Const Other: General: no acute distress and well developed Nutritional Appearance: well nourished Orientation/consciousness: patient oriented x3 HENMT Head: Yes normocephalic and Yes atraumatic Eyes General: appearance normal, both eyes and all related structures Pupils: Equal, round and reactive pupils present EOM: EOMs intact bilaterally Resp Effort & Inspection: normal respiratory effort Auscultation: clear to auscultation bilaterally Cardio Rate: regular rate Rhythm: regular rhythm Heart sounds: S1 normal heart sound present, S2 normal heart sound present, no gallops, no murmurs and no rubs GI Palpation (GI): No Abdominal aortic bruit present, Soft to palpation, nontender, No hepatosplenomegaly present and No Rebound tenderness present Auscultation: normal bowel sounds General: Yes no CVA tenderness Back/Spine/Pelvis Back: no CVA tenderness Cervical Spine: cervical ROM normal and No Cervical spine tenderness Thoracic/Lumbar Spine: thoraco-lumbar ROM normal, No pain with thoraco-lumbar ROM, No thoracic spinal tenderness and No lumbar spinal tenderness Extrem General: Yes normal to inspection, No edema and No calf tenderness Skin General: warm and dry. Normal skin color. Normal skin turgor Lesions: no lesions Rashes: no rashes Trauma: no lacerations or abrasions Wounds: no wounds Nails: normal Neuro General: patient oriented x3, gait normal and no focal neuro deficit Cranial nerves: Yes Equal, round and reactive pupils present Cognition (Neuro): normal cognition Gait exam (Neuro): Normal gait present Sensory Exam: No Sensory deficit (Neuro) Psych Appearance: grossly normal Affect: normal affect Attitude: cooperative Thought process: Normal thought process present Assessment and Plan Assessment & Plan (1) Hypertension: Code(s): I10 - Essential (primary) hypertension Plan: Blood pressure is 110/80, within goal of less than 140/90 Continue current treatment regimen Healthy lifestyle changes, including low-sodium diet encouraged Advised to get lab work done and follow-up in 1 month for an extended physical exam Return sooner with symptoms or concerns Verbalized understanding and agreed with the plan (2) Laboratory tests ordered as part of a complete physical exam (CPE): Code(s): Z00.00 - Encounter for general adult medical examination without abnormal findings Plan: Fasting labs ordered in preparation of a complete physical exam. Advised to fast for at least 10 hours before getting labs drawn. May drink water Verbalized understanding and agreed with treatment plan. Orders: Orders Lipid Panel Today Z00.00 - Encounter for general adult medical examination without abnormal findings PSA, Ultra Sensitive Today Z00.00 - Encounter for general adult medical examination without abnormal findings Comprehensive [place]. Panel Fast Today Z00.00 - Encounter for general adult medical examination without abnormal findings TSH reflex Free T4 Today Z00.00 - Encounter for general adult medical examination without abnormal findings Microalbumin, Random (w Creat) Today Z00.00 - Encounter for general adult medical examination without abnormal findings UA CC w/rflx Micro + Cult Today Z00.00 - Encounter for general adult medical examination without abnormal findings Vitamin D 25-OH Total Today E55.9 - Vitamin D deficiency, unspecified Coding Level of Care Code Est Pt Level 3 (56182) Diagnoses Hypertension I10 Laboratory tests ordered as part of a complete physical exam (CPE) Z00.00
[2024-04-10 11:56] VITALS: BP 110/80; PULSE 92; RESP 16; TEMP 37; O2SAT 97; BMI 40.5
== END 2024-04-10 12:45 | disposition home or self-care (01) ==
PROVIDERS: PCP Nurse Practitioner Family; Visit Provider Nurse Practitioner Family
DX: I10 Essential (primary) hypertension (principal); Z00.00 Encounter for general adult medical examination without abnormal findings

== ENCOUNTER → 2024-04-10 11:23 | Outpatient (BNVA) | payer OTHER, MEDICAID, SELFPAY | PROVIDERS: PCP Nurse Practitioner Family; Visit Provider Nurse Practitioner Family | DX: I10 Essential (primary) hypertension (principal) ==

== ENCOUNTER 2024-08-22 14:03 | Outpatient (REF) | payer OTHER, MEDICAID, SELFPAY ==
[2024-08-22 17:51] LABS: Appearance Urine Clear; Color Urine Yellow; Glucose Urine UA Negative (Negative); Leukocyte Esterase Urine Negative (Negative); Nitrite Urine Negative (Negative); PH 5.5 (5.0-9.0); Specific Gravity - Urine 1.025 (1.005-1.025); Urine Blood Negative (Negative); Urine Ketones Trace mg/dL (Negative); Urine Protein Negative (Neg-Trace)
--- OUTSIDE RECORDS SUMMARY | 2024-08-22 17:55 | XMS_ITS | Clinical Summary ---
Author Organization [facility] Address [address] [place] [address] Care Team Providers Care Bass Singer Name Role Phone Unknown Pcp, Non Rmg Primary Care Provider Unava ilable Medications Gabapentin (NEURONTIN) 800 MG tablet TAKE 1 TABLET (800 MG TOTAL) BY MOUTH 3 TIMES A DAY. PLEASE DON'T FOR GET ABOUT APPT ON 06/16. 02/05/2022 Active Active Problems No known active problems Social History Tobacco Use Types Packs/Day Years Used Date Smoking Tobacco: Never Assessed Intimate Partner Violence Answer Date R ecorded Fear of Current or Ex-Partner Not on file Emotionally Abused Not on file 03/16/2023 Physically Abused Not on file 03/16/2023 Sexually Abused Not on file 03/16/2023 Feel Safe at Home Not on file 03/16/2023 Sex and Gender Information Value Date Recorded Sex Assigned at Not on file Legal Sex Male 4:25 PM EDT Gender Identity Not on file Sexual Orientation Not on file Last Filed Vital Signs Vital Sign Reading Time Taken Comments Blood Pressure - - Pulse - - Temperature - - Respiratory Rate - - Oxygen Saturation - - Inhaled Oxygen Concentration - - Weight 118 kg (260 lb) 03/01/2022 6:17 PM EDT Height 177.8 cm (5' 10 ) 03/01/2022 6:17 PM EDT Body Mass Index 37.31 03/01/2022 6:17 PM EDT Plan of Treatment Health Maintenance Due Date Last Done Comments Hepatitis C Screening 1975 DTaP/Tdap/Td (1 - Tdap) 12/26/1993 Hep B (1 of 3 - 19+ 3-dose series) 12/26/1994 Colon Cancer Screening 12/26/2020 COVID-19 Vaccine ( - 2023-2 5 season) 2024 Influenza (#1) 2024 Zoster (Shingrix) (1 of 2) 12/26/2025 HPV Vaccine Aged Out No longer eligi ble based on patient's age to complete this topic Hep A Aged Out No longer eligi ble based on patient's age to complete this topic Hib Aged Out No longer eligi ble based on patient's age to complete this topic Meningococcal ACWY Aged Out No longer eligible based on patient's age to complete this topic Pneumococcal Aged Out No longer eligi ble based on patient's age to complete this topic Insurance MEDICARE PART B Care Teams Bass Singer Relationship Specialty Start Date End Date Unknown Pcp, Non Rmg PCP - General 02/25/22
--- OUTSIDE RECORDS SUMMARY | 2024-08-22 17:55 | XMS_ITS | Continuity of Care Document ---
Author Organization [facility] Address [address] [place] [address] Phone Care Team Providers Care Assembler Fishing Floats Name Role Phone Terrence Campos RDH Unavailable Unavailable Allergies, Adverse Reactions, Alerts Substance Reaction Status Criticality No Known Allergies Active No Inform ation Medications Medication Instructions Dosage Effective Dates (start - stop) Status Comments IBU 800 mg tablet take 1 tablet by ora l route 3 times every day with food 800 MG - Active Procedures Procedure Date Periodic Oral Evaluation-Established Pat ient Bitewings-Four Films Oral Hygiene Instructions Prophylaxis-Adult Maxillary Partial Denture-Resin Base (In cluding An Mandibular Partial Denture-Resin Base (I ncluding A MXACRYPARTIAL/TRY IN LOWER ACRYLIC PARTIAL/TRYIN MXACRYLIC PARTIAL/WAX RIM/BITE 20 LOWER ACRYLIC PARTIAL/WAXRIM/BITE Comprehensive Periodontal Evaluation-New Or Establ Oral Hygiene Instructions Prophylaxis-Adult LOWER PARTIAL DENTURE FINAL IMPRESSION J MX ACRYLPART/FINAL IMP & CUSTOM 020 LOWER ACRYLIC PARTIAL/IMP&CAST 19 MX ACRYPARTIAL IMP&DIAG CAST Amalgam-Three Surfaces, Primary Or Perma nent Amalgam-Four Or More Surfaces, Primary O r [facility] Case Presentation, Detailed And Extensiv e Treatmen Resin-Based Composite-One Surface, Anter ior Amalgam-Three Surfaces, Primary Or Perma nent Case Presentation, Detailed And Extensiv e Treatmen Amalgam-Three Surfaces, Primary Or Perma nent Case Presentation, Detailed And Extensiv e Treatmen Resin-Based Composite-Four Or More Surfa pamela, Poste Case Presentation, Detailed And Extensiv e Treatmen Extraction, Erupted Tooth Or Exposed Stefania t (Elevati Extraction, Erupted Tooth Or Exposed Stefania t (Elevati Case Presentation, Detailed And Extensiv e Treatmen Resin-Based Composite-One Surface, Anter ior Case Presentation, Detailed And Extensiv e Treatmen Extraction, Erupted Tooth Or Exposed Stefania t (Elevati Extraction, Erupted Tooth Or Exposed Stefania t (Elevati Case Presentation, Detailed And Extensiv e Treatmen Extraction, Erupted Tooth Or Exposed Stefania t (Elevati Extraction, Erupted Tooth Or Exposed Stefania t (Elevati Case Presentation, Detailed And Extensiv e Treatmen Intraoral-Complete Series (Including Bit ewings) Comprehensive Oral Evaluation-New Or Est ablished P Advance Directives Directive Yes / No Effective Date File Name No Information Encounters Encounter Description Practice Location Reason(s) For Visit Diagnoses Date Provider Providers Copied on Encounter [facility], [address] [place] [address],[address], [place], [place], [id number], [place] tel:[phone] [facility] Encounter for dental exam and cleaning w/o abnormal findings 0 Andres Ocampo. [address] [place] [address], [id number]. tel:[phone] [facility], [address] [place] [address],[address], [place], [place], [id number], [place] tel:[phone] [facility] Encounter for dental exam and cleaning w/o abnormal findings 0 No Information [facility], [address] [facility], [place], [place], [id number], [place] tel:[phone] 2 [facility] Encounter for dental exam and cleaning w/o abnormal findings 0 No Information [facility], [address] [place] [address] [address], [place], [place], [id number], [place] tel:[phone] [facility] Encounter for dental exam and cleaning w/o abnormal findings 0 No Information [facility], [address] [facility] [facility] [facility] [address], [place], [id number], [place] tel:[phone] [facility] Encounter for dental exam and cleaning w/o abnormal findings 0 Andres Ocampo. [address] [place] [address], [id number]. tel:[phone] [facility], [address] [facility] [address] [facility] [address], [place], [place], [id number], [place] tel:[phone] [facility] Encounter for dental exam and cleaning w/o abnormal findings 0 No Information [facility], [address] [facility] [address] [facility] [address], [place], [place], [id number], [place] tel:[phone] 2 [facility] Encounter for dental exam and cleaning w/o abnormal findings - 9 No Information [facility], [address] [facility] [address] [facility] [address], [place], [place], [id number], [place] tel:[phone] [facility] Encounter for dental exam and cleaning w/o abnormal findings - 9 No Information [facility], [address] [facility] [address] [facility] [address], [place], [place], [id number], [place] tel:[phone] 2 [facility] Encounter for dental exam and cleaning w/o abnormal findings 9 No Information [facility], [address] [facility] [address], [place], [place], [id number], [place] tel:[phone] 2 [facility] Encounter for dental exam and cleaning w/o abnormal findings 9 No Information [facility], [address] [facility] [address], [place], [place], [id number], [place] tel:[phone] 2 [facility] Encounter for dental exam and cleaning w/o abnormal findings 9 No Information [facility], [address] [facility] [address] [facility] [address], [place], [place], [id number], [place] tel:[phone] 2 [facility] Encounter for dental exam and cleaning w/o abnormal findings 9 No Information [facility], [address] [facility] [address], [place], [place], [id number], [place] tel:[phone] 2 [facility] Encounter for dental exam and cleaning w/o abnormal findings 9 No Information [facility], [address] [facility] [address], [place], [place], [id number], [place] tel:[phone] 2 [facility] Encounter for dental exam and cleaning w/o abnormal findings 9 No Information [facility], [address] [facility] [address], [place], [place], [id number], [place] tel:[phone] 2 [facility] Encounter for dental exam and cleaning w/o abnormal findings 9 No Information [facility], [address] [facility] [address], [place], [place], [id number], [place] tel:[phone] 2 [facility] Encounter for dental exam and cleaning w/o abnormal findings 9 No Information [facility], [address] [facility] [address] [facility] [address], [place], [place], [id number], [place] tel:[phone] 2 [facility] Encounter for dental exam and cleaning w/o abnormal findings 9 No Information Family History Family Member Type Diagnosis Age At Onset No Information Payers Payer name Insurance type Covered constitution party ID Juan kline(s) [employer] [id number] Social History Type Description Quantity Date Captured Comments Sex Male Smoking Status No Information Chief Complaint And Reason For Visit No Information Reason For Referral Reason For Referral No Information Plan Of Treatment Date Type Action Status Goal Unhealthy drug use screening . Due on due Goal Influenza vaccine. Due on due Goal Diabetes Screening. Due on N due Goal APE. Due on due Goal Tdap. Due on due Goal Lipid panel. Due on due Goal Document SOGI Information. D ue on due Goal Td vaccine. Due on due Goal Td vaccine. Due on due Goal Document SOGI Information. D ue on due Goal Lipid panel. Due on due Goal Influenza vaccine. Due on due Goal Diabetes Screening. Due on due Goal Tdap. Due on due Goal APE. Due on due History Of Present Illness Encounter Date Complaint History Of Prese nt Illness No Information Functional Status Date Functional Assessmen t No Information Instructions Date Instruction Additional Infor mation No Information Assessments Type Assessment Date No Information Patient Care Teams Name Effective Dates (start - stop) Status Members No Information
[2024-08-22 18:15] LABS: Creatinine Urine 259.65 mg/dL; Microalbum/Creatinine Ratio Ur 4.6 ug/mg cr (<30)
[2024-08-22 18:54] LABS: Alanine Aminotransferase 53 U/L (0-40); Albumin Level 4.2 g/dL (3.5-5.0); Alkaline Phosphatase 101 U/L (39-117); Anion Gap 11 (12-20); Aspartate Amino Transferase 45 U/L (5-37); Bilirubin Total 0.4 mg/dL (0.0-1.0); Blood Urea Nitrogen 13 mg/dL (9-16); Calcium 9.3 mg/dL (8.4-10.2); Carbon Dioxide 26 mmol/L (22-29); Chloride 107 mmol/L (96-108); Cholesterol 170 mg/dL (<200); Estimated Glomerular Filt Rate > 60; Glucose Fasting 126 mg/dL (60-99); HDL Cholesterol 40 mg/dL (>40); LDL Cholesterol Calculated 87 mg/dL (<100); Potassium 4.1 mmol/L (3.3-5.1); Sodium 140 mmol/L (135-145); TSH reflex Free T4 1.98 uIU/mL (0.32-4.0); Total Protein 7.5 g/dL (6.5-8.0); Triglycerides 218 mg/dL (<150); Vitamin D 25-OH Total 26.1 ng/mL (>30)
[2024-09-04 11:38] LABS: PSA, Ultra Sensitive 0.59 ng/mL
== END 2024-08-22 14:04 | disposition home or self-care (01) ==
LOC: HO.WFDLDS 14:03
PROVIDERS: Visit Provider Nurse Practitioner Family
DX: Z00.00 Encounter for general adult medical examination without abnormal findings (principal); E55.9 Vitamin D deficiency, unspecified; Z13.29 Encounter for screening for other suspected endocrine disorder; Z13.220 Encounter for screening for lipoid disorders; Z12.5 Encounter for screening for malignant neoplasm of prostate
CPT/HCPCS: 36415; 80053; 80061; 81003; 82043; 82306; 82570; 84153; 84443

== ENCOUNTER → 2024-08-30 10:05 | Outpatient (BNVA) | payer OTHER, MEDICAID, SELFPAY | PROVIDERS: PCP Nurse Practitioner Family; Visit Provider Nurse Practitioner Family | DX: Z00.00 Encounter for general adult medical examination without abnormal findings (principal); I10 Essential (primary) hypertension; E55.9 Vitamin D deficiency, unspecified; F41.9 Anxiety disorder, unspecified; F32.A Depression, unspecified; E78.5 Hyperlipidemia, unspecified; R74.01 Elevation of levels of liver transaminase levels; E11.9 Type 2 diabetes mellitus without complications; L40.9 Psoriasis, unspecified; H52.10 Myopia, unspecified eye; E66.9 Obesity, unspecified; Z68.41 Body mass index [BMI] 40.0-44.9, adult; Z79.899 Other long term (current) drug therapy | CPT/HCPCS: 83036; 96127 ==